=== PATIENT | female | born 1940 | race Caucasian/White ===

== ENCOUNTER 2018-06-01 10:50 | Outpatient (RCR) | payer MEDICARE, SELFPAY ==
--- NOTE | 2018-10-23 12:05 | HP.PT.NRP ---
HP - Discharge Summary (1) - Patient Information SAYRA LICONA was seen in my office for initial evaluation on 06/01/18. The following Plan of Care was established for this patient: Initial Frequency: 2x /Week Initial Duration: 4 Weeks - Anticipated Interventions Patient/Client Instruction: Educate patient on: Condition, Plan of Care, Risk Factors, Benefits of Fitness Program For the Purpose of:: To improve health and function, To foster healthy habits, To improve decision making, To facilitate caregiver knowledge, To improve self management, To prevent re-injury, To improve ability to perform tasks related to life management, To improve tolerance to ADL's Therapeutic Exercise to Include: Strength training, Power training, Endurance training, Balance training, Coordination, Gait and locomotor training, In an aquatic setting, Passive ROM, Active ROM, Dynamic Lumbar Stabilization For the Purpose of:: To decrease pain, To increase ROM, To improve nutrient delivery to tissue, To increase oxygenation perfusion, To improve muscle performance and motor function, To decrease level of supervision to perform tasks, To improve gait and locomotor functions, To increase flexibility/ROM, To improve endurance, To improve balance This patient was last seen in our office 06/01/18. Pertinent comments regarding their Physical therapy will appear below: Pt. was seen for her initial evaluation with diagnosis of low back pain and sciatica. Pt. was to start PT in aquatic setting, but did not attend any follow up visits. Pt. has not been seen in several months and will be DC from PT at this pioint in time. At this point I will be discontinuing this patient from physical therapy. I would be happy to see this patient again in the future if found appropriate by the physician. Thank you! GUI HassanT
== END 2018-06-01 19:00 | disposition home or self-care (01) ==
LOC: PT 10:50
PROVIDERS: Family Provider Family Medicine; Visit Provider Psychiatry & Neurology Neurology
DX: M54.40 Lumbago with sciatica, unspecified side (principal); M21.371 Foot drop, right foot
CPT/HCPCS: 97162

== ENCOUNTER → 2018-10-06 14:17 | Outpatient (CLI) | payer MEDICARE, SELFPAY ==
[2018-05-29 13:19] VITALS: BMI 21.0
--- NOTE | 2018-10-06 14:24 | RAD_ITS ---
STUDY: X-RAY CHEST REASON FOR EXAM: Female, 78 years old. Shortness of breath dyspnea TECHNIQUE: PA and lateral views of the chest. COMPARISON: None. FINDINGS: The lungs appear grossly clear allowing for the severe S-shaped scoliosis. There is severe scoliosis of the thoracic spine with severe scoliosis of the lumbar spine. There is no demonstrated pleural abnormality. There is borderline cardiac enlargement. Normal mediastinum and valeria. Normal visualized pulmonary arteries. Normal visualized aortic arch and descending thoracic aorta. Normal visualized thoracic spine. Normal visualized ribs, clavicles, and shoulders. There is no demonstrated abnormality of the visualized soft tissue structures of the upper abdomen. RAD/Chest PA and Lateral IMPRESSION: Severe scoliosis no visualized focal infiltrate. Electronically Signed: Heidi Hector MD at 15:18 EDT Tel , Service support ,
[2018-10-06 16:27] LABS: Anion Gap 3 (5-15); BUN 13 mg/dL (7-18); Calcium,Total 8.9 mg/dL (8.5-10.1); Chloride 96 mmol/L (98-107); Creatinine, Serum 0.62 mg/dL (0.55-1.02); EST Glomerular Filtration Rate 99 mL/min (>60); Est Glom Filt Rate - Afr Amer 120 mL/min (>60); Glucose 103 mg/dL (74-106); Potassium 3.9 mmol/L (3.5-5.1); Sodium Level 131 mmol/L (136-145)
[2018-10-06 16:34] LABS: BNP,B-Type NATRIURETIC PEPTIDE 54.6 pg/mL (0-100)
== END ==
PROVIDERS: Referring Provider Internal Medicine Cardiovascular Disease; Visit Provider Internal Medicine Cardiovascular Disease
DX: R06.02 Shortness of breath (principal)
CPT/HCPCS: 36415; 71046; 80048; 83880

== ENCOUNTER → 2018-10-21 14:49 | Outpatient (CLI) | payer MEDICARE, SELFPAY ==
[2018-05-29 13:19] VITALS: BMI 21.0
--- NOTE | 2018-10-21 14:51 | ECHOD_ITS ---
Reason For Study: dyspnea/SOB Procedure This was a 2D Doppler, Color Flow transthoracic echocardiogram. Exam performed in department. Left Ventricle Normal LV size. Left ventricular systolic function is normal. The estimated ejection fraction is 60 %. Stage 1 diastolic dysfunction. No regional wall motion abnormalities noted. Right Ventricle Normal RV size. Normal systolic function. Atria Normal left atrium. Normal right atrium. Mitral Valve Normal mitral valve. Tricuspid Valve Normal tricuspid valve. Aortic Valve Normal aortic valve. Mild (1+) aortic valve insufficiency. Pulmonic Valve Normal pulmonic valve. Great Vessels Normal aortic root. The pulmonary artery is normal size. Normal inferior vena cava. Pericardium/Pleural No pericardial effusion. MMode/2D Measurements & Calculations LVIDd: 4.3 cm IVSd: 1.1 cm Ao root diam: 3.5 cm LVIDs: 2.8 cm LVPWd: 1.1 cm RVDd: 2.7 cm FS: 34.3 % LAV(MOD-bp): 53.4 ml LA A4 area: 15.9 cm2 LA dimension(2D): 3.2 cm LAV(MOD-bp) Indexed: 35.1 ml/m2 LAV(MOD-sp2): 70.6 ml LAV(MOD-sp4): 42.5 ml RA A4 area: 14.3 cm2 Time Measurements MV dec time: 0.14 sec Doppler Measurements & Calculations MV E max pravin: 79.6 cm/sec Lat Peak E' Pravin: 9.8 cm/sec Med Peak E' Pravin: 9.7 cm/sec MV A max pravin: 99.1 cm/sec E/E' lat: 8.1 E/E' med: 8.2 MV E/A: 0.80 Ao V2 max: 162.3 cm/sec AI max pravin: 403.5 cm/sec LV V1 max: 80.2 cm/sec Ao max P.5 mmHg AI max P.1 mmHg LV V1 max P.6 mmHg AI dec slope: 289.7 cm/sec2 AI P1/2t: 408.0 msec PA V2 max: 65.2 cm/sec TR max pravin: 334.3 cm/sec TR max P.0 mmHg Interpretation Summary Normal LV size. Left ventricular systolic function is normal. The estimated ejection fraction is 60 %. Stage 1 diastolic dysfunction. Mild (1+) aortic valve insufficiency. Ordering Physician: Fabian Virk Referring Physician: Ame Islas Performed By: Maria Alejandra Ramsey RDCS, RVT
== END ==
PROVIDERS: Referring Provider Internal Medicine Cardiovascular Disease; Visit Provider Internal Medicine Cardiovascular Disease
DX: I34.0 Nonrheumatic mitral (valve) insufficiency (principal)
CPT/HCPCS: 93306

== ENCOUNTER → 2018-12-17 09:57 | Outpatient (CLI) | payer MEDICARE, SELFPAY ==
[2018-11-18 13:30] VITALS: BMI 22.3
--- NOTE | 2018-12-17 15:26 | PFTCOMP ---
COMPLETE PULMONARY FUNCTION TEST INTERPRETATION Brief HPI: Patient is a 78 year old female, currently under the care of myself, who presents to [facility] for complete pulmonary function tests secondary to diagnosis of dyspnea. Respiratory therapist reports good effort and reproducible results. Interpretation: Forced expiration spirometry shows a severe large airways obstructive ventilatory defect with an FEV1 of 52% predicted. There is no significant bronchodilator response by strict ATS criteria. Spirograms are of good quality and plateau slowly, indicating slowly emptying areas of the lungs. The respiratory flow volume loop shows decreased expiratory flow rates at all lung volumes consistent with airway obstruction. Lung volumes by body plethysmography show a decreased total lung capacity at 2.28 L, 52% predicted. All other lung volumes are reduced symmetrically. Diffusion capacity by carbon monoxide is decreased at 46% predicted. The airway resistance is elevated. No previous pulmonary function tests were available for review. Impression: Severe mixed ventilatory defect with no response to bronchodilators and symmetric reduction diffusing capacity
== END ==
PROVIDERS: Family Provider Family Medicine; PCP Family Medicine; Referring Provider Internal Medicine Critical Care Medicine; Visit Provider Internal Medicine Critical Care Medicine
DX: R06.02 Shortness of breath (principal)
CPT/HCPCS: 94060; 94726; 94729

== ENCOUNTER → 2018-12-29 10:37 | Outpatient (CLI) | payer MEDICARE, SELFPAY ==
[2018-11-18 13:30] VITALS: BMI 22.3
[2018-12-29 10:45] VITALS: PULSE 61; PULSE 66; PULSE 67; PULSE 68; PULSE 72; PULSE 76; O2SAT 86; O2SAT 89; O2SAT 90; O2SAT 91; O2SAT 94; O2SAT 98
--- NOTE | 2018-12-29 11:32 | CPS ---
2L added pt was 86% on RA in the 3rd minute. SPO2 stayed 94% and above for remainder of test. Kathleen signed prescription for 2L O2 with exertion.
--- NOTE | 2018-12-29 14:57 | PCM.PSN.6M ---
PSN 6 Minute Walk Test - 6 Minute Walk Test 6 Minute Walk Test: 6 Minute Walk Test PSN:6-Minute Walk Test Start: 12/29/18 11:27 Freq: Status: Active Protocol: [id number] Document 12/29/18 10:45 HG (Rec: 12/29/18 11:33 HG [id number]) 6 Minute Walk Test Date Performed 12/29/18 Time Performed 10:45 Height 5 ft 2 in Weight: 52.163 kg Weight in Pounds 115.[address]: Shmuel Rivera Assistive device used: Cane Pre-test Oxygen Delivery Method Room Air Pulse Ox (%) 91 Pulse Rate (60-100 beats/min) 66 Dyspnea Jenniffer Scale (0-10) 2 Exertion Jenniffer Scale (6-20) 11 1st minute Oxygen Delivery Method Room Air Pulse Ox (%) 90 Pulse Rate (60-100 beats/min) 72 2nd minute Oxygen Delivery Method Room Air Pulse Ox (%) 89 Pulse Rate (60-100 beats/min) 76 3rd minute Oxygen Delivery Method Room Air Pulse Ox (%) 86 Pulse Rate (60-100 beats/min) 72 4th minute Oxygen Flow Rate (L/min) (L/min) 2 Oxygen Delivery Method Nasal Cannula Pulse Ox (%) 94 Pulse Rate (60-100 beats/min) 67 5th minute Oxygen Flow Rate (L/min) (L/min) 2 Oxygen Delivery Method Nasal Cannula Pulse Ox (%) 98 Pulse Rate (60-100 beats/min) 68 6th minute Oxygen Flow Rate (L/min) (L/min) 2 Oxygen Delivery Method Nasal Cannula Pulse Ox (%) 98 Pulse Rate (60-100 beats/min) 72 Post-test Oxygen Flow Rate (L/min) (L/min) 2 Oxygen Delivery Method Nasal Cannula Pulse Ox (%) 98 Pulse Rate (60-100 beats/min) 61 Dyspnea Jenniffer Scale (0-10) 3 Exertion Jenniffer Scale (6-20) 13 Full Laps Walked 9 Partial Lap, Number of Tiles Walked 0 Total Distance Walked (ft) 531 12/29/18 11:32 Cardiopulmonary Services by Jane Kovacs 2L added pt was 86% on RA in the 3rd minute. SPO2 stayed 94% and above for remainder of test. Kathleen signed prescription for 2L O2 with exertion. Initialized on 12/29/18 11:32 - END OF NOTE - Interpretation Interpretation: The patient was noted to be 91% on room air. The patient then ambulated 531 feet over the course of 6 minutes with the assistance of a cane. Patient did desaturate to 86% in the third minute and was placed on 2 L nasal cannula. These findings are consistent with a respiratory limitation exercise tolerance. - Recommendations Recommendations: Patient requires no supplemental oxygen at rest, but should be using 2 L nasal cannula with any exertion.
== END ==
PROVIDERS: Family Provider Family Medicine; PCP Family Medicine; Referring Provider Internal Medicine Critical Care Medicine; Visit Provider Internal Medicine Critical Care Medicine
DX: R06.02 Shortness of breath (principal)
CPT/HCPCS: 94618

== ENCOUNTER → 2019-05-26 10:57 | Outpatient (CLI) | payer MEDICARE, SELFPAY ==
[2019-04-05 13:35] VITALS: BMI 23.0
[2019-05-25 13:09] VITALS: BMI 23.0
== END ==
PROVIDERS: Family Provider Family Medicine; PCP Family Medicine; Referring Provider Physician Assistant Medical; Visit Provider Physician Assistant Medical
DX: R06.00 Dyspnea, unspecified (principal); R53.83 Other fatigue
CPT/HCPCS: 93225; 93226

== ENCOUNTER → 2019-06-08 10:06 | Outpatient (CLI) | payer MEDICARE, SELFPAY ==
[2019-01-04 09:44] VITALS: BMI 22.5
[2019-05-25 13:09] VITALS: BMI 23.0
--- NOTE | 2019-06-09 09:55 | PFT ---
INTRODUCTION: The patient is a 78-year-old female that presents for pulmonary function studies secondary to a diagnosis of hypoxemia. Respiratory therapy reports good patient effort. Bronchodilators were used during testing. INTERPRETATION: Forced expiration spirometry demonstrates the presence of a severe large airways obstructive ventilatory defect. There was a partial, albeit technically nonsignificant, response to aerosolized bronchodilators. Spirograms plateau gradually indicating slow imaging of the lungs. Body plethysmography was performed and revealed a decrease TLC to 2.65 L, 61% of predicted, indicative of a moderate restrictive ventilatory defect. The remainder of the lung volumes were symmetrically reduced. Diffusing capacity by single breath CO is reduced at 45% of predicted. When compared to pulmonary function studies from November 2018, there has been a 20% reduction in FEV1. IMPRESSION: Severe mixed ventilatory defect with borderline bronchodilator response and symmetric reduction in diffusing capacity. There has been worsening in the patient's FEV1 since November 2018 as noted above.
== END ==
PROVIDERS: Family Provider Family Medicine; PCP Family Medicine; Referring Provider Internal Medicine Critical Care Medicine; Visit Provider Internal Medicine Critical Care Medicine
DX: R09.02 Hypoxemia (principal); M41.9 Scoliosis, unspecified
CPT/HCPCS: 94060; 94726; 94729